=== PATIENT | female | born 1955 | race American Indian/Alaskan Native ===

== ENCOUNTER 2018-02-09 20:27 | Emergency (ER) | payer BC ==
[2018-02-09 21:14] VITALS: BP 140/81
--- NOTE | 2018-02-09 22:15 | Emergency Department Report ---
Chief Complaint: High BP Stated Complaint: HIGH BLOOD PRESSURE Time Seen by Provider: 02/09/18 22:10 - HPI History of Present Illness: 62-year-old after an [place] female states that her blood pressure today was 224/104 at 3 PM. Patient denies any chest pain headache nausea vomiting. She reported to triage she had some tingling to her right thumb and foot. Patient has no complaints to this provider. Patient does report she took her clonidine 0.2 mg at that time and comes in today with a blood pressure 140/81. Patient reports that she takes clonidine 0.2 mg twice a day amlodipine 5 mg daily lisinopril 20 mg daily and metformin 500 mg twice a day. Patient currently has no complaints. - Exam Vital Signs: Vital Signs 02/09/18 21:09 Temperature 98.4 F Pulse Rate 68 Respiratory 18 Rate Blood Pressure 140/81 O2 Sat by Pulse 96 Oximetry Physical Exam: Patient is alert and oriented 3. Heart: S1-S2 regular rate and rhythm or murmurs appreciated Resp: Clear to auscultation bilateral Extremities: No edema appreciated Neuro: Muscle strength 4/5, full range of motion and normal gait, smile symmetrical no slurred speech MSE screening note: Focused history and physical exam performed. Due to findings the following was ordered: Discussed patient that her blood pressures within normal limits. It was 140/81 patient has no neurological deficits complains of no headache change of vision chest pain or shortness of breathing. Discussed the patient she should be safe to go home continue her for a r regular regiment of medications. ED Disposition for MSE Condition: Stable Referrals: PRIMARY CARE, [Primary Care Provider] - 3-5 Days
== END 2018-02-09 23:16 | disposition home or self-care (01) ==
LOC: ED 20:27
DX: I10 Essential (primary) hypertension (principal); R20.2 Paresthesia of skin
CPT/HCPCS: 99282